=== PATIENT | female | born 1985 ===

== ENCOUNTER 2016-09-10 18:21 | Emergency (ER) | payer SELFPAY ==
[2016-09-10 18:29] VITALS: RESP 16; TEMP 99
[2016-09-10 19:23] LABS: URINE BACTERIA RARE (<OCC); URINE BILIRUBIN NEGATIVE (NEGATIVE); URINE BLOOD NEGATIVE (NEGATIVE); URINE COLOR Colorless (YELLOW); URINE GLUCOSE (UA) NORMAL (Normal); URINE KETONE NEGATIVE (NEGATIVE); URINE LEUKOCYTE ESTERASE NEG Leu/uL (Negative); URINE PROTEIN NEGATIVE (NEGATIVE); URINE UROBILINOGEN NORMAL mg/dL (0.2-1.0); WBC URINE < 1 /hpf (0-5)
[2016-09-10] MEDS ORDERED: Naproxen 550 mg Tab PO STA (19:31)
[2016-09-10] MEDS ORDERED: Naproxen 550 mg Tab PO ONE (20:02)
--- NOTE | 2016-09-10 20:32 | C.PDOC ---
History Of Present Illness 30 year old female presents to the ED with complaints of lower back pain that occasionally radiates to the front of her abdomen, associated with dysuria since this morning. Patient states the pain does not radiate down her legs. She denies nausea, vomiting, diarrhea, hematuria, vaginal bleeding/discharge, fever, abdominal pain, falls/injury. Time Seen by Provider: 09/10/16 18:31 Chief Complaint (Nursing): Back Pain History Per: Patient History/Exam Limitations: no limitations Onset/Duration Of Symptoms: Hrs Current Symptoms Are (Timing): Still Present Quality Of Discomfort: "Pain" Severity: Mild Past Medical History Reviewed: Historical Data, Nursing Documentation, Vital Signs Vital Signs: Last Vital Signs Temp 99 F 09/10/16 18:26 Pulse 88 09/10/16 20:44 Resp 16 09/10/16 20:44 BP 140/72 09/10/16 20:44 Pulse Ox 100 09/10/16 20:54 - Medical History PMH: No Chronic Diseases Family History: States: No Known Family Hx - Social History Hx Alcohol Use: No Hx Substance Use: No - Immunization History Hx Tetanus Toxoid Vaccination: No Hx Influenza Vaccination: No Hx Pneumococcal Vaccination: No Review Of Systems Except As Marked, All Systems Reviewed And Found Negative. Constitutional: Negative for: Fever, Chills Cardiovascular: Negative for: Chest Pain, Palpitations Respiratory: Negative for: Cough, Shortness of Breath Gastrointestinal: Negative for: Nausea, Vomiting, Abdominal Pain, Diarrhea Genitourinary: Positive for: Dysuria Musculoskeletal: Positive for: Back Pain Skin: Negative for: Rash Neurological: Negative for: Weakness, Numbness Physical Exam - Physical Exam Appears: Well, Non-toxic, No Acute Distress Skin: Normal Color, Warm, Dry, No Rash Head: Normacephalic Eye(s): bilateral: Normal Inspection Oral Mucosa: Moist Cardiovascular: Rhythm Regular Respiratory: Normal Breath Sounds, No Accessory Muscle Use, No Rales, No Rhonchi , No Wheezing Gastrointestinal/Abdominal: Normal Exam, Bowel Sounds, Soft, No Tenderness, No Guarding, No Rebound, Other (+Obese) Back: No CVA Tenderness, No Vertebral Tenderness, Paraspinal Tenderness (+ Paralumbar tenderness) Extremity: Normal ROM Neurological/Psych: Oriented x3, Normal Motor, Normal Sensation Gait: Steady ED Course And Treatment O2 Sat by Pulse Oximetry: 100 (Room air) Pulse Ox Interpretation: Normal Progress Note: Urinalysis and POC urine ordered and reviewed. Patient given PO Naproxen and Flexeril. Reevaluation Time: 20:30 Reassessment Condition: Improved (Patient reassessed, is resting comfortably, states her pain has improved and she feels better. UA and Upreg (-). patient is well appearing, ambulating normally in the ED ,has normal vitals and is comfortable being discharged home. She was given Rxs for Naprosyn and Flexeril , and instucted to follow up with PMD/clinic in 1-2 days. She understands she should return to ED if symptoms worsen.) Disposition Counseled Patient/Family Regarding: Studies Performed, Diagnosis, Need For Followup, Rx Given - Disposition Referrals: [facility] [Outside] Disposition: HOME/ ROUTINE Disposition Time: 20:30 Condition: STABLE Prescriptions: Cyclobenzaprine [Cyclobenzaprine HCl] 10 mg PO BID PRN #12 tab PRN Reason: pain/muscle Naproxen [Naprosyn Tab] 375 mg PO BID PRN #15 tab PRN Reason: pain Instructions: Acute Low Back Pain (ED) Print Language: ALBANIAN - POA Present On Arrival: None - Clinical Impression Clinical Impression: Low back pain - Scribe Statement The provider has reviewed the documentation as recorded by the Scribe [place]. Provider Attestation: All medical record entries made by the Scribe were at my direction and personally dictated by me. I have reviewed the chart and agree that the record accurately reflects my personal performance of the history, physical exam, medical decision making, and the department course for this patient. I have also personally directed, reviewed, and agree with the discharge instructions and disposition.
[2016-09-10 20:44] VITALS: BP 140/72; PULSE 88
[2016-09-10 20:50] VITALS: O2SAT 100
== END 2016-09-10 20:44 | disposition home or self-care (01) ==
LOC: C.ER 18:21
DX: M54.5 Low back pain (principal)